=== PATIENT | female | born 1955 | race Caucasian/White ===

== ENCOUNTER 2017-07-20 18:11 | Emergency (ER) | payer OTHER ==
[2017-07-20 18:17] VITALS: RESP 18
--- NOTE | 2017-07-20 18:49 | EDPHY ---
H & P Time Seen by Provider: 07/20/17 18:42 HPI/ROS: HPI: This is a 61-year-old female who presents with Chief Complaint: Right finger laceration Location: Right ring finger Quality: Cut Signs and Symptoms: + mild bleeding, no radiation, no numbness, no weakness, no tingling, no decreased range of motion Timing: Acute Severity: [id number] Context: Patient complains of accidentally cutting her finger with a razor blade on her right index finger by putting together a train model set. Started to bleed with immediate pain. Washed out with mild soap and water for several minutes under the faucet. Applied cotton and wrapped with a pressure dressing. Tetanus booster given in 2015 per patient report. Right-hand dominant. Modifying Factors: Cleaned with soap and water and applied pressure dressing, transient relief Comment: ROS: Constitutional: No fever, no chills, no weight loss Eyes: No blurred vision Respiratory: No shortness of breath, no cough Cardiovascular: No chest pain Gastrointestinal: No nausea, no vomiting no diarrhea Genitourinary: No dysuria Extremities: No myalgias Neurologic: No weakness, no numbness Skin: No rashes Hematologic: No bruising, no bleeding MEDICAL/SURGICAL/SOCIAL HISTORY: Medical Hx: Chronic kidney disease stage 3. Surgical Hx: Denies Social history: Single. Recently moved to the area. CONSTITUTIONAL: Pleasant elderly white female who appears younger than stated age, awake and alert, no obvious distress HEENT: Atraumatic and normocephalic, PERRL, EOMI. Tympanic membranes clear. Oropharynx clear, no exudate and moist pink mucosa. Airway patent. No lymphadenopathy. No meningismus. Cardiovascular: Normal S1/S2, regular rate, regular rhythm, without murmur rub or gallop. PULMONARY/CHEST: Symmetrical and nontender. Clear to auscultation bilaterally. Good air movement. No accessory muscle usage. ABDOMEN: Soft, nondistended, nontender, no rebound, no guarding, no peritoneal signs, no masses or organomegaly. No CVAT. EXTREMITIES: 2/2 radial pulses, right ring finger 1 cm superficial horizontal laceration over PIP joint. DIP/PIP joint flexion/extension/light touch sensation intact. no deformities, no clubbing, no cyanosis or edema. NEUROLOGICAL: no focal neuro deficits. GCS 15. SKIN: Warm and dry, no erythema. no rash. Good capillary refill. Smoking Status: Never smoked Constitutional: Initial Vital Signs Temperature (C) 36.6 C 07/20/17 18:12 Heart Rate 67 07/20/17 18:12 Respiratory Rate 18 07/20/17 18:12 Blood Pressure 124/89 H 07/20/17 18:12 O2 Sat (%) 98 07/20/17 18:12 O2 Delivery Mode Room Air Allergies/Adverse Reactions: lamotrigine [From Lamictal] Allergy (Verified 07/20/17 18:17) Home Medications: Medication Instructions Recorded Lorazepam 07/20/17 THYROID 07/20/17 Medical Decision Making Procedures: Procedures: Procedure: Laceration repair. Verbal consent was obtained from the patient. The superficial linear simple 1.0 cm laceration on the right ring finger over the PIP joint was anesthetized in the usual fashion with 5 mL 1% lidocaine using a digital block. The wound was irrigated, draped and explored to its base with a gloved finger. There were no deep structures involved. No tendon injury was identified. No foreign bodies were found. The wound was repaired with #3, 6-0 Prolene in simple interrupted pattern. Bacitracin, gauze, Kerlix applied. Good hemostasis was achieved and patient tolerated the procedure well. The procedure was performed by myself. ED Course/Re-evaluation: Tetanus booster up-to-date. Wound cleaned and irrigated copiously. #3 nonabsorbable sutures placed and clean sterile dressing applied. No signs of neurovascular compromise/tenting of skin/compartment syndrome/ extremities and joints examined above and below area of concern and are neurovascularly intact. Differential Diagnosis: Differential diagnosis includes laceration, nerve injury, tendon injury. Departure - Departure Disposition: Home, Routine, Self-Care Clinical Impression: Laceration of finger Qualifiers: Encounter type: initial encounter Finger: ring finger Damage to nail status: without damage Foreign body presence: without foreign body Laterality: right Qualified Code(s): S61.214A - Laceration without foreign body of right ring finger without damage to nail, initial encounter Condition: Good Instructions: Finger Laceration (ED) Additional Instructions: Keep the dressing in place for 48 hours. After 48 hours, you may remove the dressing; wash the site daily with mild soap and water; then pat dry. Take ibuprofen 600-800 mg every 6-8 hours with food as needed for pain and inflammation. Apply ice for 30 minutes at a time; 2-3 times per day for the next 1-2 days. Please return to the emergency room to have your sutures removed in 7-10 days. Referrals: [facility],. [Clinic] - As per Instructions
[2017-07-20 19:08] VITALS: BP 121/76; PULSE 57; TEMP 98.1; O2SAT 91
== END 2017-07-30 13:32 | disposition home or self-care (01) ==
PROC: 0HQFXZZ Repair Right Hand Skin, External Approach (ICD-10-PCS; principal; 2017-07-20)
DX: S61.214A Laceration without foreign body of right ring finger without damage to nail, initial encounter (principal); W26.8XXA Contact with other sharp object(s), not elsewhere classified, initial encounter; Y99.8 Other external cause status; Y93.89 Activity, other specified